=== PATIENT | male | born 1965 | race Two or more races ===

== ENCOUNTER 2016-07-19 05:29 | Emergency (ER) | payer SELFPAY ==
[~2016-07-19] VITALS: Ht 182.9 cm; Wt 79.4 kg
[2016-07-19] MEDS ORDERED: Aspirin Baby 81mg ORAL ONE (05:30)
--- NOTE | 2016-07-19 05:30 | Emergency Room Report ---
History of Present Illness General Source: Patient, Medical Record, EMS (CONCETTA MENON M.D.) Present Illness HPI 50 YO M BIBEMS after patient called from his car of "I dont feel well" and "Shortness of breath" after smoking crack and taking 100mg seroquel. Patient denies other medical problems. Denies chest pain, fever/chills, cough. Is homeless, lives in car. Didnt do other drugs or ETOH. (CONCETTA MENON M.D.) Allergies: Coded Allergies: No Known Allergies (Unverified , 07/19/16) Patient History Past Medical History: none, psych hx Past Surgical History: none Pertinent Family History: none Social History: Reports: drug use, smoking (CONCETTA MENON M.D.) Review of Systems All Other Systems: negative except mentioned in HPI (CONCETTA MENON M.D.) Physical Exam Sp02 EP Interpretation: reviewed, abnormal, other - Hypotensive General Appearance: normal inspection, no apparent distress, alert, GCS 15, non -toxic, other - disheveled, foul-smelling Head: normocephalic, atraumatic (CONCETTA MENON M.D.) Procedures Critical Care Time Critical Care Time 45 minutes Care for a 50 YOM with SOB after smoking crack. Denies CAD risk factors. Presents warm, hypotensive, ?bradycardia. Patient immediately placed on wrapper layer and examiner soft work with rhytm strip and STAT EKG was obtained which showed NSR, no ischemia. Labs indicated: CBC, CMP, troponin Highly suspected: Angina, NSTEMI, r/o ACS ASA given Possible interventions - Heparin, SL Ntg, Nitro drip, Thrombolytics, repeat EKG. Critical care time of 45 minutes including: re-exams and consultations and review of serial EKG's and Laboratory tests, not including reportable procedures. (CONCETTA MENON M.D.) Medical Decision Making Diagnostic Impression: Primary Impression: Cocaine abuse Additional Impression: Near syncope ER Course 50 YO M with endorsed cocaine abuse, near syncope and weakness. VSS. Afebrile. PLAN: ECG, labs, IVF hydration, reassess Endorsed to Dr Blunt at 630am for ultimate disposition (CONCETTA MENON M.D.) ER Course Please refer to the initial note for the initial history and presentation At this time the patient was observed further in the emergency room Family is here She is the one who contacted 911 Gives a report of the patient telling her that he did not feel well and felt lightheaded Patient also does admit to doing crack cocaine just prior to that At this time the patient is awake alert feels well Denies any chest pain or shortness of breath There was no actual syncopal episode Given the fairly extensive observation in the emergency room Given the patient's complete resolution and appropriate clinical reevaluation Given the workup and initial appropriate EKG Patient at this time stable for close outpatient followup Initially there was limited information and question regarding possible inpatient observation however the patient at this time states he feels well and would like to go home Labs Test 07/19/16 05:35 White Blood Count 5.2 K/UL (4.8-10.8) Red Blood Count 4.21 M/UL (4.70-6.10) Hemoglobin 12.6 G/DL (14.2-18.0) Hematocrit 39.0 % (42.0-52.0) Mean Corpuscular Volume 92 FL (80-99) Mean Corpuscular Hemoglobin 29.8 PG (27.0-31.0) Mean Corpuscular Hemoglobin Concent 32.3 G/DL (32.0-36.0) Red Cell Distribution Width 12.1 % (11.6-14.8) Platelet Count 238 K/UL (150-450) Mean Platelet Volume 6.8 FL (6.5-10.1) Neutrophils (%) (Auto) 56.2 % (45.0-75.0) Lymphocytes (%) (Auto) 32.9 % (20.0-45.0) Monocytes (%) (Auto) 6.9 % (1.0-10.0) Eosinophils (%) (Auto) 2.4 % (0.0-3.0) Basophils (%) (Auto) 1.6 % (0.0-2.0) Sodium Level 143 mEQ/L (135-145) Potassium Level 3.6 mEQ/L (3.4-4.9) Chloride Level 105 mEQ/L (98-107) Carbon Dioxide Level 24 mEQ/L (20-30) Anion Gap 14 (5-15) Blood Urea Nitrogen 8 mg/dL (7-23) Creatinine 0.9 mg/dL (0.7-1.2) Estimat Glomerular Filtration Rate > 60 mL/min (>60) Glucose Level 86 mg/dL (74-106) Calcium Level 8.3 mg/dL (8.6-10.2) Total Bilirubin 0.4 mg/dL (0.0-1.2) Aspartate Amino Transf (AST/SGOT) 13 U/L (5-40) Alanine Aminotransferase (ALT/SGPT) 9 U/L (3-41) Alkaline Phosphatase 59 U/L (40-129) Total Creatine Kinase 151 U/L (38-174) Creatine Kinase MB < 1.5 ng/mL (< 6.7) Creatine Kinase MB Relative Index Troponin I < 0.30 ng/mL (<=0.30) Total Protein 6.3 g/dL (6.6-8.7) Albumin 3.4 g/dL (3.5-5.2) Globulin 2.9 g/dL Albumin/Globulin Ratio 1.1 (1.0-2.7) (TAMI [email or web address].Linda.) EKG Diagnostic Results Rate: normal Rhythm: NSR ST Segments: no acute changes ASA given to the pt in ED: Yes (CONCETTA MENON M.D.) Rhythm Strip Diag. Results EP Interpretation: yes Rate: 55 Rhythm: NSR, no ectopy, other - Multiple PVCs (CONCETTA MENON M.D.) EP Interpretation: yes Rate: 62 Rhythm: NSR, no PVC's, no ectopy (TAMI BLUNT.Lnida.) Chest X-Ray Diagnostic Results EP Interpretation: Yes Findings: no consolidation, no effusion, no pneumothorax Number of Views: 1 (TAMI BLUNT D.O.) Status: improved (TAMI BLUNT D.O.) Disposition: HOME, SELF-CARE Condition: Improved Additional Instructions: Patient is provided with the discharge instructions notified to follow up with primary doctor in the next 2-3 days otherwise return to the er with any worsening symptoms. CONCETTA MENON M.D. Jul 19, 2016 05:30 TAMI BLUNT D.O. Jul 19, 2016 08:48
[2016-07-19 05:45] VITALS: BP 103/68
[2016-07-19 06:02] LABS: BASOPHILS % (AUTO) 1.6 % (0.0-2.0); EOSINOPHILS % (AUTO) 2.4 % (0.0-3.0); LYMPHOCYTES % (AUTO) 32.9 % (20.0-45.0); MEAN CORPUSCULAR HEMOGLOBIN 29.8 PG (27.0-31.0); MEAN CORPUSCULAR HGB CONC 32.3 G/DL (32.0-36.0); MEAN CORPUSCULAR VOLUME 92 FL (80-99); MEAN PLATELET VOLUME 6.8 FL (6.5-10.1); MONOCYTES % (AUTO) 6.9 % (1.0-10.0); NEUTROPHILS % (AUTO) 56.2 % (45.0-75.0); PLATELET COUNT 238 K/UL (150-450); RED BLOOD COUNT 4.21 M/UL (4.70-6.10); RED CELL DISTRIBUTION WIDTH 12.1 % (11.6-14.8); WHITE BLOOD COUNT 5.2 K/UL (4.8-10.8)
[2016-07-19 06:17] LABS: ALANINE AMINOTRANSFERASE 9 U/L (3-41); ALBUMIN/GLOBULIN RATIO 1.1 (1.0-2.7); ANION GAP 14 (5-15); ASPARTATE AMINO TRANSFERASE 13 U/L (5-40); CALCIUM 8.3 mg/dL (8.6-10.2); CARBON DIOXIDE 24 mEQ/L (20-30); CHLORIDE 105 mEQ/L (98-107); CREATININE 0.9 mg/dL (0.7-1.2); GLOMERULAR FILTRATION RATE > 60 mL/min (>60); HEMOLYSIS 10; POTASSIUM 3.6 mEQ/L (3.4-4.9); SODIUM 143 mEQ/L (135-145); TOTAL PROTEIN 6.3 g/dL (6.6-8.7)
[2016-07-19 06:33] LABS: TROPONIN I < 0.30 ng/mL (<=0.30)
[2016-07-19 06:40] VITALS: BP 107/71
[2016-07-19 06:52] LABS: CKMB < 1.5 ng/mL (< 6.7)
[2016-07-19 07:30] VITALS: BP 116/73
[2016-07-19 09:00] VITALS: BP 111/68
[2016-07-19 09:30] VITALS: BP 111/68
--- NOTE | 2016-07-19 10:02 | Diagnostic Imaging Report ---
Indication: Chest Pain Comparison: None A single view chest radiograph was obtained. Findings: Cardiomediastinal appearance is within normal limits for age. Pulmonary vascularity is appropriate. The diaphragmatic contour is smooth and costophrenic angles are sharp. No pleural effusions are identified. The bones are unremarkable. Impression: No acute findings
--- NOTE | 2016-07-19 18:51 | Cardiology Report ---
APPROVED REPORT EKG Measurement Heart [id number] Sinus bradycardia with 1st degree AV block Possible Left atrial enlargement Nonspecific ST and T wave abnormality Abnormal ECG
== END 2016-07-19 09:30 | disposition home or self-care (01) ==
LOC: EDBD 05:29 → EMR 06:25
DX: F14.10 Cocaine abuse, uncomplicated (principal); I95.9 Hypotension, unspecified; R00.1 Bradycardia, unspecified; F17.200 Nicotine dependence, unspecified, uncomplicated
CPT/HCPCS: 36415; 71010; 80053; 82550; 82553; 84484; 85025; 87081; 93005